=== PATIENT | male | born 1985 | race Hispanic/Latino ===

== ENCOUNTER 2021-08-17 11:01 | Emergency (ER) | payer OTHER ==
[~2021-08-17] VITALS: Ht 170.2 cm; Wt 123.4 kg
== END 2021-08-17 11:38 | disposition home or self-care (01) ==
LOC: ER 11:32
DX: R20.0 Anesthesia of skin (principal); T67.5XXA Heat exhaustion, unspecified, initial encounter
CPT/HCPCS: 93005; 99282